=== PATIENT | male | born 1960 | race Caucasian/White ===

== ENCOUNTER → 2020-01-02 09:41 | Outpatient (BNVA) | payer BC, SELFPAY | PROVIDERS: Family Provider Family Medicine; PCP Family Medicine; Visit Provider Otolaryngology | DX: L98.9 Disorder of the skin and subcutaneous tissue, unspecified (principal); K13.0 Diseases of lips; F17.210 Nicotine dependence, cigarettes, uncomplicated | CPT/HCPCS: 99204; 99214 ==

== ENCOUNTER 2020-05-03 11:57 | Outpatient (CLI) | payer BC, SELFPAY ==
--- NOTE | 2020-05-03 12:10 | CT_ITS ---
WS: [id number] CT NECK TECHNIQUE: Contrast-enhanced CT of the neck with coronal and sagittal reformatted images. CLINICAL INFORMATION: MALIGNANT NEOPLASM OF LARYNX, LOCALIZED SWELLING MASS AND JOSELYN COMPARISON: None. DLP: 2137.[address] scans at [facility] use at least one of these dose optimization techniques: automat ed exposure control; mA and/or kV adjustment per patient size (includes targeted exams where dose is matched to clinical indication); or iterative reconstruction. FINDINGS: Peripheral enhancing soft tissue nodule overlying the right anterior mandible measuring 2.1 x 1.2 CM. This corresponds to the area of concern. Differential considerations include neoplasm versus possibl y abscess. Peripheral enhancement with some central low attenuation. This is difficult to further gracie racterize due to the cutaneous/subcutaneous location Opacification right maxillary sinus with peripheral enhancement and chronic bony remodeling. Findings likely due to long-standing sinusitis. Left maxillary sinus is well aerated. Normal ethmoid air cell s and mastoid air cells. Normal posterior nasopharynx. Normal parapharyngeal fat. Normal palatine ton sils. Thyroid gland is normal. Emphysematous changes in the lung apices. Thyroid gland is normal. Straighte tomi of the normal cervical lordosis with mild spondylitic changes and disc space narrowing worse at C5-6. CT/CT neck w con* [id number] IMPRESSION: 1. Peripheral enhancing subcutaneous polypoid lesion overlying the right lower mandible suspicious for neoplasm or possibly abscess. No evidence of underlyin g bone destruction or significant osteomyelitis. 2. Soft tissue edema overlying the mandible 3. Chronic opacification right maxillary sinus likely due to long-standing sin usitis. 4. No evidence of supraglottic or glottic mass. Normal posterior nasopharynx. 5. No cervical lymphadenopathy.
[2020-05-03] MEDS: iohexol 300 mg/mL 100 mL Btl IV (12:31)
== END 2020-05-03 11:58 | disposition home or self-care (01) ==
LOC: RADWPI 12:01
PROVIDERS: Family Provider Family Medicine; PCP Family Medicine; Visit Provider Specialist
DX: C32.9 Malignant neoplasm of larynx, unspecified (principal); R22.0 Localized swelling, mass and lump, head; Z01.810 Encounter for preprocedural cardiovascular examination
CPT/HCPCS: 70491; Q9967

== ENCOUNTER 2020-05-04 09:18 | Outpatient (CLI) | payer BC, SELFPAY ==
--- NOTE | 2020-05-04 09:53 | ECG_ITS ---
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 Measurements Intervals [place] Rate: 84 P: 81 VT: 171 QRS: 68 QRSD: 79 T: 75 QT: 331 QTc: 392 Interpretive Statements SINUS RHYTHM POSSIBLE RIGHT VENTRICULAR CONDUCTION DELAY [RSR (QR) IN V1/V2] No previous ECG available for comparison Electronically Signed On 05-04-2020 16:31:44 CDT by Baudilio Huertas M.D. [email or web address]
[2020-05-04 10:41] LABS: Basophils # 0.1 10^3/uL (0.0-0.1); Basophils % 1.2 %; Eosinophils # 0.1 10^3/uL (0.0-0.8); Eosinophils % 1.4 %; Hematocrit 55.2 % (42.0-52.0); Hemoglobin 17.8 g/dL (11.7-16.6); Lymphocytes # 1.5 10^3/uL (0.8-4.8); Lymphocytes % 21.2 %; Mean Corpuscular HGB Conc 32.2 g/dL (30.0-36.0); Mean Corpuscular Hemoglobin 32.1 pg (28.0-34.0); Mean Corpuscular Volume 99.6 fL (80-94); Mean Platelet Volume 10.7 fL (7.4-10.4); Monocytes # 0.7 10^3/uL (0.2-0.9); Monocytes % 9.9 %; Nucleated Red Blood Cells % 0 %; Platelet Count 183 10^3/cmm (130-400); Red Blood Count 5.54 10^6/uL (4.1-5.3); Red Cell Distribution Width 12.9 % (12.1-15.1); White Blood Count 7.3 10^3/uL (4.0-10.0)
== END 2020-05-04 09:19 | disposition home or self-care (01) ==
LOC: RT 09:20
PROVIDERS: PCP Family Medicine; Visit Provider Specialist
DX: Z01.810 Encounter for preprocedural cardiovascular examination (principal)
CPT/HCPCS: 36415; 80053; 85025; 88305; 93005

== ENCOUNTER 2023-04-11 14:44 | Outpatient (CLI) | payer MEDICAID, SELFPAY ==
[2023-04-11 15:52] LABS: Basophils # 0.1 10^3/uL (0.0-0.1); Basophils % 0.6 %; Eosinophils # 0.1 10^3/uL (0.0-0.8); Eosinophils % 0.6 %; Hemoglobin 14.6 g/dL (11.7-16.6); Lymphocytes # 1.8 10^3/uL (0.8-4.8); Lymphocytes % 22.8 %; Mean Corpuscular Hemoglobin 33.9 pg (28.0-34.0); Mean Corpuscular Volume 99.8 fl (80-94); Monocytes # 0.6 10^3/uL (0.2-0.9); Monocytes % 7.5 %; Neutrophils # 5.36 10^3/uL (1.8-7.7); Neutrophils % 68.2 %; Nucleated Red Blood Cells % 0 %; Platelet Count 237 10^3/cmm (130-400); Red Blood Count 4.31 10^6/uL (4.1-5.3); Red Cell Distribution Width 15.3 % (12.1-15.1); White Blood Count 7.9 10^3/uL (4.0-10.0)
[2023-04-11 16:18] LABS: Cortisol Random 20.67 ug/dL (2.47-19.5)
[2023-04-11 16:19] LABS: Ferritin 642 ng/mL (30-400); Iron 161 ug/dL (59-158); Phosphorus 2.3 mg/dL (2.5-4.5)
[2023-04-11 16:35] LABS: 25 Hydroxy Vitamin D 12 ng/mL (30-100); Vitamin B12 431 pg/mL (232-1245)
[2023-04-11 16:57] LABS: Percent Saturation 63.8 % (20-50); Total Iron Binding Capacity 252 mcg/dl; Unsaturated Iron Binding 91 ug/dL (112-347)
[2023-04-11 19:16] LABS: Magnesium 1.9 mg/dL (1.7-2.3)
[2023-04-12 09:07] LABS: Alanine Aminotransferase 22 U/L (0-41); Albumin Level 3.5 g/dL (3.5-5.2); Alkaline Phosphatase 155 U/L (40-130); Blood Urea Nitrogen 6 mg/dL (8-23); Carbon Dioxide 19 mmol/L (22-29); Chloride 95 mmol/L (98-107); Globulin 2.7 g/dL (1.3-4.6); Glomerular Filtration Rate 98.3 mL/min (90-130); Glucose 70 mg/dL (65-115); Osmolality Calculated 272 mOsm/kg (285-295); Sodium 133 mmol/L (136-145); Total Bilirubin 1.2 mg/dL (0.15-1.2); Total Protein 6.2 g/dL (6.6-8.7)
[2023-04-12 09:13] LABS: Anion Gap 24.2 (5-19); Potassium 5.2 mmol/L (3.5-5.1)
[2023-04-12 09:14] LABS: Aspartate Amino Transferase 23 U/L (0-40)
[2023-04-12 11:54] LABS: Anti-Double Strand DNA AB 1 IU/mL; Jo-1 Antibody <1.0 NEG AI (<1.0 NEG); SM/RNP Antibodies <1.0 NEG AI (<1.0 NEG); SS-B/LA IGG <1.0 NEG AI (<1.0 NEG); Scleroderma Ab(Scl-70) Ab <1.0 NEG AI (<1.0 NEG); Ss-A/Ro Igg <1.0 NEG AI (<1.0 NEG)
[2023-04-20 14:05] LABS: Plasma Renin Activity LC/MS/MS 11.31 ng/mL/h (0.25-5.82)
[2023-07-11 16:07] LABS: SS A Ro Sjogrens Antibody <1.0 NEG
== END 2023-04-11 14:45 | disposition home or self-care (01) ==
LOC: LAB 14:50
PROVIDERS: PCP Family Medicine; Visit Provider Nurse Practitioner
DX: E87.6 Hypokalemia (principal); R53.83 Other fatigue; R63.0 Anorexia; R63.4 Abnormal weight loss
CPT/HCPCS: 36415; 80053; 82088; 82306; 82533; 82607; 82728; 82746; 83540; 83550; 83735; 84100; 84244; 85025; 86225; 86235